=== PATIENT | male | born 1960 | race Caucasian/White ===

== ENCOUNTER 2022-04-17 05:07 | Day surgery (SDC) | payer OTHER ==
[2022-04-17] VITALS (10 sets, daily range): BP systolic 100–132; BP diastolic 46–99
[~2022-04-17] VITALS: Ht 172.7 cm; Wt 88.3 kg
[2022-04-17] MEDS ORDERED: diphenhydrAMINE 25mg capsule PO PRN (05:40)
[2022-04-17] MEDS ORDERED: normal saline 1,000 ML IV SCH (05:40)
[2022-04-17] MEDS ORDERED: LORazepam 0.5 MG tablet PO PRN (05:40)
[2022-04-17] MEDS ORDERED: heparin 1,000unit/ml 10ml vial 10 ML ONE (05:47)
[2022-04-17] MEDS ORDERED: verapamil 2.5 mg/ml inj IV ONE (05:47)
[2022-04-17] MEDS ORDERED: iohexol 350MG/ML 100ml bottle IV ONE (05:47)
[2022-04-17] MEDS ORDERED: nitroGLYCERIN-Tridil 50MG/D5W 250 ML IV ONE (05:47)
[2022-04-17] MEDS ORDERED: LIDOcaine 1%/PF 5ML 10 MG/ML VIAL ONE (05:47)
[2022-04-17] MEDS ORDERED: midazolam 1 mg/ML 2ml injection ONE (05:47)
[2022-04-17] MEDS ORDERED: fentaNYL/PF 50MCG/1 ML 2ML syringe ONE (05:47)
[2022-04-17] MEDS ORDERED: METF-438 PO (06:00)
[2022-04-17] MEDS ORDERED: LANTUS SQ (06:00)
[2022-04-17] MEDS ORDERED: MAGN400T56 PO (06:00)
[2022-04-17] MEDS ORDERED: APIX5TAB3 PO (06:00)
[2022-04-17] MEDS ORDERED: LISI10TA27 PO (06:00)
[2022-04-17] MEDS ORDERED: ATOR-2 PO (06:00)
[2022-04-17 06:14] LABS: BASOPHILS % (AUTO) 0.4 % (0-1); EOSINOPHILS # (AUTO) 0.1 X10'3 (0-0.9); EOSINOPHILS % (AUTO) 1.1 % (0-6); HEMATOCRIT 40.8 % (42.0-52.0); HEMOGLOBIN 14.4 g/dl (14.0-17.9); LYMPHOCYTES # (AUTO) 1.2 X10'3 (1.1-4.8); LYMPHOCYTES % (AUTO) 13.8 % (21-51); MEAN CORPUSCULAR HEMOGLOBIN 34.7 PG (27.0-31.0); MEAN CORPUSCULAR HGB CONC 35.3 g/dL (33.0-36.5); MEAN CORPUSCULAR VOLUME 98.3 FL (78-98); MEAN PLATELET VOLUME 7.3 FL (7.4-10.4); MONOCYTES # (AUTO) 0.7 X10'3 (0-0.9); MONOCYTES % (AUTO) 8.8 % (2-12); NEUTROPHILS # (AUTO) 6.4 X10'3 (1.8-7.7); NEUTROPHILS % (AUTO) 75.9 % (42-75); PLATELET COUNT 240 X10'3 (140-440); RED BLOOD COUNT 4.15 X10'6 (4.70-6.10); RED CELL DISTRIBUTION WIDTH 13.7 % (11.5-14.5); WHITE BLOOD COUNT 8.4 X10'3 (4.5-11.0)
[2022-04-17 06:18] LABS: ALBUMIN 3.9 G/DL (3.4-5.0); ANION GAP 9 (8-16); BLOOD UREA NITROGEN 14 MG/DL (7-18); BUN/CREATININE RATIO 14.3 (5.4-32.0); CALCIUM 8.8 MG/DL (8.5-10.1); CHLORIDE 105 MMOL/L (99-107); CREATININE 0.98 MG/DL (0.60-1.10); GLUCOSE 161 MG/DL (70-104); POTASSIUM 3.9 MMOL/L (3.5-5.1); SODIUM 141 MMOL/L (135-145); TOTAL CARBON DIOXIDE 26.7 MMOL/L (24-32); eGFR 77 ML/MIN
[2022-04-17 06:21] LABS: APTT 24 SECONDS (22-32)
[2022-04-17] MEDS ORDERED: OXAZEpam 15mg capsule PO PRN (07:15)
[2022-04-17] MEDS ORDERED: proCHLORperazine 10 MG/2 ml inj IV PRN (07:15)
[2022-04-17] MEDS ORDERED: ondansetron/PF 4mg/2ml inj IV PRN (07:15)
== END 2022-04-17 10:06 | disposition home or self-care (01) ==
LOC: SSTAY O 05:07
PROVIDERS: ATTEND Internal Medicine Interventional Cardiology
DX: R94.39 Abnormal result of other cardiovascular function study (principal); I25.10 Atherosclerotic heart disease of native coronary artery without angina pectoris; E11.9 Type 2 diabetes mellitus without complications; I10 Essential (primary) hypertension; I48.91 Unspecified atrial fibrillation; Z79.899 Other long term (current) drug therapy; Z86.73 Personal history of transient ischemic attack (TIA), and cerebral infarction without residual deficits; Z98.890 Other specified postprocedural states
CPT/HCPCS: 36415; 80048; 82948; 85025; 85610; 85730; 93458; 99152; A6258; C1769; C1894; J1644; J2250; J3010; J3490; J7030; Q9967; 99153; A4620; A6402

== ENCOUNTER 2022-06-10 18:13 | Inpatient (IN) | payer BC, MEDICARE ==
[~2022-06-10] VITALS: Ht 172.7 cm; Wt 86.4 kg
[~2022-06-10 18:13] MED LIST: APIX5TAB3 PO; ATOR-2 PO; LANTUS SQ; LISI10TA27 PO; MAGN400T56 PO; METF-438 PO
[2022-06-10 19:19] LABS: BASOPHILS # (AUTO) 0.1 X10'3 (0-0.2); BASOPHILS % (AUTO) 0.7 % (0-1); EOSINOPHILS # (AUTO) 0.1 X10'3 (0-0.9); EOSINOPHILS % (AUTO) 0.6 % (0-6); HEMATOCRIT 38.7 % (42.0-52.0); LYMPHOCYTES # (AUTO) 1.4 X10'3 (1.1-4.8); LYMPHOCYTES % (AUTO) 12.8 % (21-51); MEAN CORPUSCULAR HEMOGLOBIN 34.9 PG (27.0-31.0); MEAN CORPUSCULAR HGB CONC 36.3 g/dL (33.0-36.5); MEAN CORPUSCULAR VOLUME 96.2 FL (78-98); MEAN PLATELET VOLUME 7.1 FL (7.4-10.4); MONOCYTES # (AUTO) 1.2 X10'3 (0-0.9); MONOCYTES % (AUTO) 11.3 % (2-12); NEUTROPHILS # (AUTO) 7.8 X10'3 (1.8-7.7); NEUTROPHILS % (AUTO) 74.6 % (42-75); PLATELET COUNT 262 X10'3 (140-440); RED BLOOD COUNT 4.02 X10'6 (4.70-6.10); RED CELL DISTRIBUTION WIDTH 13.2 % (11.5-14.5); WHITE BLOOD COUNT 10.5 X10'3 (4.5-11.0)
[2022-06-10 19:36] LABS: ALANINE AMINOTRANSFERASE 24 U/L (12-78); ALBUMIN 3.5 G/DL (3.4-5.0); ALKALINE PHOSPHATASE 41 IU/L (46-116); ANION GAP 10 (8-16); ASPARTATE AMINO TRANSFERASE 17 U/L (10-37); BILIRUBIN,TOTAL 0.4 MG/DL (0.1-1.0); BLOOD UREA NITROGEN 27 MG/DL (7-18); BUN/CREATININE RATIO 12.9 (5.4-32.0); CALCIUM 9.2 MG/DL (8.5-10.1); CHLORIDE 101 MMOL/L (99-107); CREATININE 2.09 MG/DL (0.60-1.10); GLUCOSE 225 MG/DL (70-104); LIPASE 76 U/L (73-393); POTASSIUM 4.6 MMOL/L (3.5-5.1); SODIUM 137 MMOL/L (135-145); TOTAL CARBON DIOXIDE 26.2 MMOL/L (24-32); TOTAL PROTEIN 7.1 G/DL (6.4-8.2); eGFR 32 ML/MIN
[2022-06-10 19:55] LABS: CLARITY,URINE CLEAR (Clear); COLOR,URINE YELLOW (Yellow); GLUCOSE, URINE >=1000 mg/dl (Neg); KETONES,URINE NEGATIVE (Neg); LEUKOCYTE ESTERASE ,URINE NEGATIVE (Neg); NITRITES, URINE NEGATIVE (Neg); OCCULT BLOOD,URINE SMALL (Neg); PROTEIN,URINE TRACE mg/dl (Neg); UROBILINOGEN,URINE 0.2 E.U/dL (0.2-1.0)
[2022-06-10 20:10] LABS: BACTERIA,URINE FEW /HPF (Neg); MUCUS STRANDS NONE SEEN /LPF (Neg); SQUAMOUS EPITHELIAL CELL,UR NONE SEEN /LPF (FEW); UA COLLECTION TYPE CLN CATCH MIDSTREAM; WBC,URINE 0-4 /HPF (0-4)
[2022-06-11] MEDS ORDERED: normal saline 1000ml 1,000 ML IV ONE (01:00)
[2022-06-11] MEDS ORDERED: tamsulosin 0.4mg capsule PO ONE (01:00)
[2022-06-11] MEDS ORDERED: fentaNYL/PF 50MCG/1 ML 2ML syringe IV ONE (01:10)
[2022-06-11] MEDS ORDERED: ondansetron/PF 4mg/2ml inj IV ONE (01:10)
--- NOTE | 2022-06-11 01:35 | NUR ---
ivp x2 given by nurse discharge planner
[2022-06-11] MEDS ORDERED: magnesium 2GM in 50ml NS 50 ML IV PRN (01:40)
[2022-06-11] MEDS ORDERED: potassium CL 10mEq/100ml bag 100 ML IV PRN (01:40)
[2022-06-11] MEDS: tamsulosin 0.4mg capsule PO SCH ×2 (01:40→20:26)
[2022-06-11] MEDS ORDERED: HYDROcodone/acetaminophen 5mg/325mg tablet PO PRN (01:40)
[2022-06-11] MEDS ORDERED: magnesium 4gm in 100ml NS 100 ML IV PRN (01:40)
[2022-06-11] MEDS ORDERED: morphine 2 MG/ML inj. syringe IV PRN (01:40)
[2022-06-11] MEDS ORDERED: ondansetron/PF 4mg/2ml inj IV PRN (01:40)
[2022-06-11] MEDS ORDERED: acetaminophen 325mg tablet PO PRN ×2 (01:40)
[2022-06-11] MEDS ORDERED: magnesium Cl slow-release 64mg tablet PO PRN (01:40)
[2022-06-11] MEDS ORDERED: POTASSIUM BICARB 20meq eff tab 20 MEQ TABLET.EFF PO PRN ×2 (01:40)
[2022-06-11] MEDS ORDERED: glucagon, human recombinant 1mg kit SUBCUT PRN (02:05)
[2022-06-11] MEDS ORDERED: MESSAGE TO PHARMACY PO ONE (02:05)
[2022-06-11] MEDS ORDERED: dextrose 50%-water 50ml dispensing syringe IV PRN ×2 (02:05)
[2022-06-11] MEDS ORDERED: DEXTROSE 15 GM of carb/4 tabs (each vial/BOTTLE has 4 tablets) PO PRN ×2 (02:05)
[2022-06-11] MEDS: normal saline 1000ml 1,000 ML IV SCH ×4 (02:44→21:42)
[2022-06-11] MEDS ORDERED: CLOP75TA34 PO (03:09)
[2022-06-11] MEDS ORDERED: vitamin d2 PO (03:09)
[2022-06-11] MEDS ORDERED: PIOG15TA8 PO (03:09)
[2022-06-11] MEDS: HYDROcodone/acetaminophen 10/325mg tab PO PRN ×3 (05:52→20:34)
[2022-06-11] MEDS: morphine 2 MG/ML inj. syringe IV PRN ×3 (05:52→18:54)
--- NOTE | 2022-06-11 06:11 | NUR ---
pt is asleep
--- NOTE | 2022-06-11 07:49 | NUR ---
moved to ER bed 13. Assumed care of patient.
[2022-06-11] MEDS: CefTRIAXone 2gm/D5W 50ml BAG 50 ML IV SCH (07:54)
[2022-06-11] MEDS: heparin, porcine 5000 units/ml vial SQ SCH ×2 (07:54→20:27)
[2022-06-11] MEDS: K and/or MAG REPLACEMENT MC SCH ×2 (07:55→20:00)
[2022-06-11] MEDS: atorvastatin 20mg tablet PO SCH (10:20)
--- NOTE | 2022-06-11 14:00 | NUR ---
or called, surgery to be done tomorrow. Ok to feed patient and make NPO at midnight.
--- NOTE | 2022-06-11 14:59 | NUR ---
PATIENT STATES HE IS FREEZING COLD AND UNCOMFORTABLE. PATIENT GIVEN WARM BLANKETS AND EVS TO BRING HOSPITAL BED DOWN FOR PATIENT. PATIENT INSTRUCTED THAT OR HAS HIM SCHEDULED FOR TOMORROW. PATIENT BECAME UPSET ABOUT THIS NEWS. RN ANSWERED PATIENTS QUESTIONS AND INFORMED PATIENT HE WOULD BE ABLE TO EAT/DRINK UP UNTIL MIDNIGHT.
--- NOTE | 2022-06-11 17:45 | NUR ---
PATIENT RESTING, EYES CLOSED
[2022-06-11] MEDS: insulin glargine (Lantus) pen - multi-dose SQ SCH (21:00)
[2022-06-11] MEDS ORDERED: temazepam 15mg capsule PO PRN (21:00)
[2022-06-12] VITALS (31 sets, daily range): BP systolic 119–167; BP diastolic 61–109
--- NOTE | 2022-06-12 04:33 | NUR ---
REPORT CALLED TO FLOOR NURSE. PT TX TO FLOOR WITH TECH TO ROOM 357
--- NOTE | 2022-06-12 04:35 | NUR ---
Patient in room ED 13. I have received report from KULDEEP ZAMORA in ER and had the opportunity to ask questions and assume patient care.
[2022-06-12] MEDS: normal saline 1000ml 1,000 ML IV SCH ×3 (05:49→19:26)
--- NOTE | 2022-06-12 06:05 | NUR ---
Problems reprioritized. Patient report given, questions answered & plan of care reviewed with JOSE ZAMORA/JANIE ZAMORA.
[2022-06-12] MEDS: morphine 2 MG/ML inj. syringe IV PRN ×3 (07:00→22:18)
[2022-06-12 07:06] LABS: BASOPHILS % (AUTO) 0.4 % (0-1); EOSINOPHILS # (AUTO) 0.1 X10'3 (0-0.9); EOSINOPHILS % (AUTO) 0.7 % (0-6); HEMATOCRIT 35.7 % (42.0-52.0); HEMOGLOBIN 12.7 g/dl (14.0-17.9); LYMPHOCYTES % (AUTO) 9.9 % (21-51); MEAN CORPUSCULAR HEMOGLOBIN 34.7 PG (27.0-31.0); MEAN CORPUSCULAR HGB CONC 35.7 g/dL (33.0-36.5); MEAN PLATELET VOLUME 7.3 FL (7.4-10.4); MONOCYTES % (AUTO) 10.1 % (2-12); NEUTROPHILS # (AUTO) 7.8 X10'3 (1.8-7.7); NEUTROPHILS % (AUTO) 78.9 % (42-75); PLATELET COUNT 216 X10'3 (140-440); RED BLOOD COUNT 3.68 X10'6 (4.70-6.10); RED CELL DISTRIBUTION WIDTH 12.9 % (11.5-14.5); WHITE BLOOD COUNT 9.9 X10'3 (4.5-11.0)
[2022-06-12] MEDS: CefTRIAXone 2gm/D5W 50ml BAG 50 ML IV SCH (07:22)
[2022-06-12] MEDS: atorvastatin 20mg tablet PO SCH (07:29)
[2022-06-12] MEDS: heparin, porcine 5000 units/ml vial SQ SCH ×2 (07:29→19:35)
[2022-06-12 07:47] LABS: ALANINE AMINOTRANSFERASE 17 U/L (12-78); ALBUMIN 2.9 G/DL (3.4-5.0); ALBUMIN/GLOBULIN RATIO 0.9 (1.1-1.5); ALKALINE PHOSPHATASE 38 IU/L (46-116); ANION GAP 9 (8-16); ASPARTATE AMINO TRANSFERASE 12 U/L (10-37); BILIRUBIN,TOTAL 0.4 MG/DL (0.1-1.0); BLOOD UREA NITROGEN 14 MG/DL (7-18); BUN/CREATININE RATIO 9.7 (5.4-32.0); CALCIUM 8.7 MG/DL (8.5-10.1); CHLORIDE 103 MMOL/L (99-107); CREATININE 1.44 MG/DL (0.60-1.10); GLUCOSE 205 MG/DL (70-104); POTASSIUM 4.2 MMOL/L (3.5-5.1); SODIUM 137 MMOL/L (135-145); TOTAL CARBON DIOXIDE 24.9 MMOL/L (24-32); TOTAL PROTEIN 6.1 G/DL (6.4-8.2); eGFR 50 ML/MIN
[2022-06-12] MEDS: K and/or MAG REPLACEMENT MC SCH ×2 (08:00→19:42)
[2022-06-12] MEDS ORDERED: morphine 2 MG/ML inj. syringe IV PRN (08:30)
[2022-06-12] MEDS ORDERED: proCHLORperazine 10 MG/2 ml inj IV PRN (08:30)
[2022-06-12] MEDS ORDERED: meperidine/PF 25mg/ml syringe IV PRN ×3 (08:30)
[2022-06-12] MEDS ORDERED: morphine 4 MG/ML inj SYRINge IV PRN (08:30)
[2022-06-12] MEDS ORDERED: ringers solution, lacted 1,000 ML IV SCH (08:30)
[2022-06-12] MEDS ORDERED: ondansetron/PF 4mg/2ml inj IV PRN (08:30)
[2022-06-12] MEDS ORDERED: magnesium hydroxide 30ml (MOM) UD suspension PO PRN (10:45)
[2022-06-12] MEDS ORDERED: bisacodyl 10mg suppository rectal RC PRN (10:45)
--- NOTE | 2022-06-12 11:41 | NUR ---
Patient to OR at 1140, Report called to recovery room.
[2022-06-12] MEDS ORDERED: iohexol 350MG/ML 100ml bottle IV ONE (12:00)
[2022-06-12] MEDS ORDERED: LIDOcaine 1% (10mg/ml)w/preservative inj. 20ml MDV ONE (12:03)
[2022-06-12] MEDS ORDERED: sevoflurane 250ml liquid IH ONE (12:03)
[2022-06-12] MEDS ORDERED: fentaNYL/PF 50MCG/1 ML 2ML syringe ONE (12:17)
[2022-06-12] MEDS ORDERED: midazolam 1 mg/ML 2ml injection ONE (12:17)
[2022-06-12] MEDS ORDERED: propofol inj 20 ML IV ONE (12:39)
--- NOTE | 2022-06-12 12:47 | NUR ---
Received from OR via , accompanied by Anesthesiologist DR JOHNSON and report given by Anesthesiolgist. VSS. PATIENT STATES COMFORT. SCD'S ON. LR RUNNING. 20 G R FA.MASK ON 8 LITERS. Addendum: 06/12/22 at 1304 by Kacey Schultz RN Amended: Links added.
--- NOTE | 2022-06-12 13:00 | NUR ---
BLOOD SUGAR 177
--- NOTE | 2022-06-12 13:14 | NUR ---
CALLED TO GIVE REPORT TO JANIE. SHE IS ON THE OTHER LINE
--- NOTE | 2022-06-12 13:47 | NUR ---
PATIENT MEETS DISC CHARGE CRITERIA. VSS. PATIENT URINATED 100 MLS OF DARK URINE. REPORT GIVEN TO FLOOR NURSE. PATIENT TRANSPORTED BY ANOTHER NURSE. Addendum: 06/12/22 at 1404 by Kacey Schultz RN Amended: Links added.
--- NOTE | 2022-06-12 14:10 | NUR ---
Patient arrived on floor at 1400 settled in room, post op v/s started, call light in reach.
--- NOTE | 2022-06-12 18:10 | NUR ---
Problems reprioritized. Patient report given, questions answered & plan of care reviewed with Prudence RN.
[2022-06-12] MEDS: HYDROcodone/acetaminophen 10/325mg tab PO PRN (18:35)
--- NOTE | 2022-06-12 18:53 | NUR ---
Patient in room [facility]. I have received report from JANIE ZAMORA/ JOSE ZAMORA and had the opportunity to ask questions and assume patient care.
[2022-06-12] MEDS: docusate sod 100mg capsule PO SCH (19:25)
[2022-06-12] MEDS: insulin Lispro (HumaLOG) vial - multi-dose SQ SCH (19:32)
[2022-06-12] MEDS: tamsulosin 0.4mg capsule PO SCH (21:32)
[2022-06-12] MEDS: insulin glargine (Lantus) pen - multi-dose SQ SCH (21:37)
[2022-06-13] MEDS: normal saline 1000ml 1,000 ML IV SCH ×2 (00:20→04:24)
[2022-06-13 02:00] VITALS: BP 122/50
--- NOTE | 2022-06-13 05:31 | NUR ---
Student documentation: I have reviewed and agree with all interventions, assessments performed and documented by FAISAL KOTHARI.
--- NOTE | 2022-06-13 05:31 | NUR ---
Student Medication Administration: For this medication-pass time frame, all medication were reviewed, dispensed, administered and documented per hospital policy by FAISAL KOTHARI.
[2022-06-13 06:00] VITALS: BP 149/96
--- NOTE | 2022-06-13 06:15 | NUR ---
Patient in room [facility] 357. I have received report from SERA Carrera and had the opportunity to ask questions and assume patient care.
--- NOTE | 2022-06-13 06:15 | NUR ---
Patient in room [facility] 357. I have received report from Debi ZAMORA and had the opportunity to ask questions and assume patient care.
--- NOTE | 2022-06-13 06:28 | NUR ---
Problems reprioritized. Patient report given, questions answered & plan of care reviewed with TOMASZ ZAMORA.
[2022-06-13 06:41] LABS: BASOPHILS % (AUTO) 0.5 % (0-1); EOSINOPHILS # (AUTO) 0.1 X10'3 (0-0.9); EOSINOPHILS % (AUTO) 1.4 % (0-6); HEMATOCRIT 37.5 % (42.0-52.0); LYMPHOCYTES # (AUTO) 1.7 X10'3 (1.1-4.8); LYMPHOCYTES % (AUTO) 23.6 % (21-51); MEAN CORPUSCULAR HEMOGLOBIN 33.8 PG (27.0-31.0); MEAN CORPUSCULAR HGB CONC 34.6 g/dL (33.0-36.5); MEAN CORPUSCULAR VOLUME 97.7 FL (78-98); MONOCYTES # (AUTO) 0.7 X10'3 (0-0.9); MONOCYTES % (AUTO) 10.3 % (2-12); NEUTROPHILS # (AUTO) 4.6 X10'3 (1.8-7.7); NEUTROPHILS % (AUTO) 64.2 % (42-75); PLATELET COUNT 214 X10'3 (140-440); RED BLOOD COUNT 3.84 X10'6 (4.70-6.10); WHITE BLOOD COUNT 7.2 X10'3 (4.5-11.0)
[2022-06-13 07:04] LABS: ALANINE AMINOTRANSFERASE 15 U/L (12-78); ALBUMIN 2.8 G/DL (3.4-5.0); ALBUMIN/GLOBULIN RATIO 0.9 (1.1-1.5); ALKALINE PHOSPHATASE 38 IU/L (46-116); ANION GAP 9 (8-16); ASPARTATE AMINO TRANSFERASE 12 U/L (10-37); BILIRUBIN,TOTAL 0.3 MG/DL (0.1-1.0); BLOOD UREA NITROGEN 10 MG/DL (7-18); CALCIUM 8.6 MG/DL (8.5-10.1); CHLORIDE 104 MMOL/L (99-107); CREATININE 0.91 MG/DL (0.60-1.10); GLUCOSE 128 MG/DL (70-104); POTASSIUM 3.9 MMOL/L (3.5-5.1); SODIUM 140 MMOL/L (135-145); eGFR 84 ML/MIN
[2022-06-13] MEDS: K and/or MAG REPLACEMENT MC SCH (08:00)
[2022-06-13] MEDS: heparin, porcine 5000 units/ml vial SQ SCH (08:04)
[2022-06-13] MEDS: docusate sod 100mg capsule PO SCH (08:04)
[2022-06-13] MEDS: atorvastatin 20mg tablet PO SCH (08:04)
[2022-06-13] MEDS: CefTRIAXone 2gm/D5W 50ml BAG 50 ML IV SCH (08:05)
[2022-06-13] MEDS: HYDROcodone/acetaminophen 10/325mg tab PO PRN (09:39)
[2022-06-13 10:00] VITALS: BP 142/70
[2022-06-13] MEDS: insulin Lispro (HumaLOG) vial - multi-dose SQ SCH (10:06)
[2022-06-13] MEDS ORDERED: SULF1TAB49 PO (10:55)
[2022-06-13] MEDS ORDERED: FLO0.4C PO (10:55)
[2022-06-13] MEDS ORDERED: OXYB5TAB16 PO (10:55)
--- NOTE | 2022-06-13 12:18 | NUR ---
Patient stable and appropriate for discharge, IV removed and intact, Education given and patient stated understanding, New meds e-scripted to [facility] on [facility] per pt request, work note was given to patient, all belongings sent home with patient, Patient taken to lobby by wheelchair where took him home.
== END 2022-06-13 12:15 | disposition home or self-care (01) | DRG 661 ==
LOC: ER 18:14 → ED HOLD 06-11 01:41 → SUR 3N 06-12 05:00
PROVIDERS: ADMIT Internal Medicine; ATTEND Family Medicine
PROC: BT1F1ZZ Fluoroscopy of Left Kidney, Ureter and Bladder using Low Osmolar Contrast (ICD-10-PCS; 2022-06-12)
PROC: 0T748DZ Dilation of Left Kidney Pelvis with Intraluminal Device, Via Natural or Artificial Opening Endoscopic (ICD-10-PCS; principal; 2022-06-12 12:03)
DX: N13.2 Hydronephrosis with renal and ureteral calculous obstruction (principal); E11.9 Type 2 diabetes mellitus without complications; Z20.822 Contact with and (suspected) exposure to COVID-19; E78.5 Hyperlipidemia, unspecified; F17.290 Nicotine dependence, other tobacco product, uncomplicated; I48.91 Unspecified atrial fibrillation; I10 Essential (primary) hypertension; N17.9 Acute kidney failure, unspecified; N40.0 Benign prostatic hyperplasia without lower urinary tract symptoms; Z86.73 Personal history of transient ischemic attack (TIA), and cerebral infarction without residual deficits; Z71.6 Tobacco abuse counseling; Z79.899 Other long term (current) drug therapy; Z79.4 Long term (current) use of insulin
CPT/HCPCS: 99285; Z7506; 36415; 74176; 76000; 80053; 81001; 82948; 83605; 83690; 85025; 87040; 87081; 87811; 97161; 97530; A4618; C1758; C1769; C2617; G0378; J0696; J1644; J1815; J2250; J2270; J2405; J2704; J3010; J3490; J7030; J7120; Q9967